=== PATIENT | male | born 1985 | race Two or more races ===

== ENCOUNTER 2023-11-05 09:39 | Emergency (ER) | payer OTHER ==
[~2023-11-05] VITALS: Ht 180.3 cm; Wt 96.2 kg
[2023-11-05 11:14] VITALS: BP 146/96; TEMP 98.4; O2SAT 94
== END 2023-11-05 11:18 ==
LOC: ER 10:01
DX: R07.89 Other chest pain (principal)
CPT/HCPCS: 71045-TC